=== PATIENT | male | born 1995 | race Two or more races ===

== ENCOUNTER 2017-02-04 18:02 | Emergency (ER) | payer OTHER ==
[~2017-02-04] VITALS: Ht 175.3 cm; Wt 90.0 kg
[~2017-02-04 18:02] MED LIST: IOHEXOL-300 100 ML BOTTLE ONE; SODIUM CHLORIDE 0.9% 10ML VIAL ONE
[2017-02-04] MEDS ORDERED: KETOROLAC 60MG/2ML VIAL IM ONE (19:00)
[2017-02-04] MEDS ORDERED: TETANUS, DIPHTHERIA, PERTUSSIS VAC/PF 0.5ML (>7YR OLD) IM ONE (19:00)
[2017-02-04] MEDS ORDERED: BACITRACIN ZINC OINT UDPKT TOP ONE (19:00)
[2017-02-04 20:17] LABS: BASOPHILS % 0.5 % (0.0-2.0); EOSINOPHILS % 1.3 % (0.0-5.0); HEMATOCRIT. 43.2 % (42.0-52.0); HEMOGLOBIN. 14.7 g/dL (14.0-18.0); LYMPHOCYTES % 30.6 % (20.0-50.0); MEAN CORPUSCULAR HEMOGLOBIN 28.9 pg (28.0-32.0); MEAN CORPUSCULAR VOLUME 84.7 fL (80.0-94.0); MEAN PLATELET VOLUME 7.9 fl (7.4-10.4); MONOCYTES % 6.3 % (2.0-8.0); NEUTROPHILS % 61.3 % (40.0-76.0); PLATELET 274 x1000/uL (130-400); RED CELL DISTRIBUTION WIDTH 13.1 % (11.6-14.6)
[2017-02-04 20:22] LABS: PROTHROMBIN TIME 10.5 sec
[2017-02-04 20:25] LABS: CARBON DIOXIDE 31 mEq/L (21-32); CHLORIDE 100 mEq/L (98-107)
[2017-02-04] MEDS ORDERED: HYDROCODONE/ACETAMINOPHEN 5/325MG TABLET PO ONE (23:00)
[2017-02-04 23:20] VITALS: BP 119/76
== END 2017-02-04 23:30 | disposition home or self-care (01) ==
LOC: ER 18:34
DX: M54.2 Cervicalgia (principal); S60.511A Abrasion of right hand, initial encounter; S60.512A Abrasion of left hand, initial encounter; Y92.410 Unspecified street and highway as the place of occurrence of the external cause; Y93.89 Activity, other specified; V49.49XA Driver injured in collision with other motor vehicles in traffic accident, initial encounter; J35.8 Other chronic diseases of tonsils and adenoids; K76.0 Fatty (change of) liver, not elsewhere classified; F42.9 Obsessive-compulsive disorder, unspecified; Z23 Encounter for immunization
CPT/HCPCS: 36415; 71260; 72125; 74177; 80053; 85025; 85610; 90471; 90715; 93005; 96372; 99285; A4216; J1885; Q9967; L0172